=== PATIENT | male | born 1940 | race Caucasian/White ===

== ENCOUNTER 2017-01-06 10:04 | Day surgery (SDC) | payer OTHER, BC ==
[~2017-01-06 10:04] MED LIST: ADRENALINE CHL INJ IJ ONE; BETADINE OPHTH SOLN 5% EACHEYE ONE; DUOVISC IO ONE; TETRACAINE 0.5% OPHTH 1 DOSE AFFEYE ONE; VIGAMOX 0.5% OPHTH 1 DOSE AFFEYE ONE; XYLOCAINE-MPF 1% IJ ONE
[2017-01-06] MEDS ORDERED: VIGAMOX 0.5% OPHTH 1 DOSE AFFEYE ONE ×4 (10:06→14:13)
[2017-01-06] MEDS ORDERED: PROLENSA OPHTH 1 DOSE AFFEYE ONE (10:12)
[2017-01-06] MEDS ORDERED: ALPHAGAN-P OPHTH 1 DOSE AFFEYE ONE (10:13)
[2017-01-06] MEDS ORDERED: NS 500 ML IV 500 ML IV ONE (10:13)
[2017-01-06] MEDS ORDERED: CYCLOGYL 1% OPHTH 1 DOSE OP ONE ×4 (10:14→10:17)
[2017-01-06] MEDS ORDERED: MYDRIACIL OPHTH 1 DOSE AFFEYE ONE ×4 (10:14→10:17)
[2017-01-06] MEDS ORDERED: AK-DILATE 2.5% OPHTH 1 DOSE OP ONE ×4 (10:14→10:17)
[2017-01-06] MEDS ORDERED: TETRACAINE 0.5% OPHTH 1 DOSE AFFEYE ONE ×6 (13:28→13:59)
[2017-01-06] MEDS: VERSED ONE ×2 (13:40→13:41)
[2017-01-06] MEDS ORDERED: AK-DILATE 10% OPHTH 1 DOSE AFFEYE ONE (13:42)
[2017-01-06] MEDS ORDERED: BETADINE OPHTH SOLN 5% EACHEYE ONE (13:48)
[2017-01-06] MEDS ORDERED: ADRENALINE CHL INJ IJ ONE (13:59)
[2017-01-06] MEDS ORDERED: DUOVISC IO ONE (13:59)
[2017-01-06] MEDS ORDERED: BSS OPHTH (PLAIN) 500 ML with VANCOMYCIN HCL 500 MG VIAL 25 MG, ADRENALINE CHL INJ 1 MG IR ONE ×3 (13:59)
[2017-01-06] MEDS ORDERED: XYLOCAINE-MPF 1% IJ ONE (13:59)
[2017-01-06 14:31] VITALS: BP 167/84
== END 2017-01-06 14:37 | disposition home or self-care (01) ==
LOC: SURG1 10:04
PROVIDERS: ATTEND Ophthalmology
PROC: 08RK3JZ Replacement of Left Lens with Synthetic Substitute, Percutaneous Approach (ICD-10-PCS; principal; 2017-01-06 15:45)
PROC: 08DK3ZZ Extraction of Left Lens, Percutaneous Approach (ICD-10-PCS; principal; 2017-01-06 15:45)
DX: H25.12 Age-related nuclear cataract, left eye (principal); H25.012 Cortical age-related cataract, left eye; H52.222 Regular astigmatism, left eye
CPT/HCPCS: 99100; A4217; J0170; J2250; J3370

== ENCOUNTER 2017-02-10 07:23 | Day surgery (SDC) | payer OTHER, BC ==
[2017-02-10] MEDS ORDERED: NS 500 ML IV 500 ML IV ONE (07:40)
[2017-02-10] MEDS ORDERED: VERSED ONE (07:42)
[2017-02-10] MEDS ORDERED: TETRACAINE 0.5% OPHTH 1 DOSE AFFEYE ONE ×3 (07:54→09:32)
[2017-02-10] MEDS ORDERED: VERSED IVP ONE ×4 (07:54→09:40)
[2017-02-10] MEDS ORDERED: AK-DILATE 10% OPHTH 1 DOSE AFFEYE ONE ×2 (07:55→09:42)
[2017-02-10] MEDS ORDERED: VIGAMOX 0.5% OPHTH 1 DOSE AFFEYE ONE ×5 (08:01→10:21)
[2017-02-10] MEDS ORDERED: PROLENSA OPHTH 1 DOSE AFFEYE ONE (08:12)
[2017-02-10] MEDS ORDERED: ALPHAGAN-P OPHTH 1 DOSE AFFEYE ONE (08:13)
[2017-02-10] MEDS ORDERED: AK-DILATE 2.5% OPHTH 1 DOSE OP ONE ×3 (08:14→08:18)
[2017-02-10] MEDS ORDERED: CYCLOGYL 1% OPHTH 1 DOSE OP ONE ×3 (08:14→08:18)
[2017-02-10] MEDS ORDERED: MYDRIACIL OPHTH 1 DOSE AFFEYE ONE ×3 (08:14→08:18)
[2017-02-10] MEDS ORDERED: BETADINE OPHTH SOLN 5% EACHEYE ONE (09:46)
[2017-02-10] MEDS ORDERED: ADRENALINE CHL INJ IJ ONE ×2 (09:55→10:10)
[2017-02-10] MEDS ORDERED: DUOVISC IO ONE ×2 (09:55→10:10)
[2017-02-10] MEDS ORDERED: XYLOCAINE-MPF 1% IJ ONE ×2 (09:55→10:10)
[2017-02-10] MEDS ORDERED: BSS OPHTH (PLAIN) 500 ML with VANCOMYCIN HCL 500 MG VIAL 25 MG, ADRENALINE CHL INJ 1 MG IR ONE ×6 (09:58)
[2017-02-10 10:50] VITALS: BP 160/82
== END 2017-02-10 10:45 | disposition home or self-care (01) ==
LOC: SURG1 07:23
PROVIDERS: ATTEND Ophthalmology
PROC: 08DJ3ZZ Extraction of Right Lens, Percutaneous Approach (ICD-10-PCS; principal; 2017-02-10 09:00)
PROC: 08RJ3JZ Replacement of Right Lens with Synthetic Substitute, Percutaneous Approach (ICD-10-PCS; principal; 2017-02-10 09:00)
DX: H25.11 Age-related nuclear cataract, right eye (principal); H25.011 Cortical age-related cataract, right eye; H52.221 Regular astigmatism, right eye
CPT/HCPCS: 99100; A4217; J0170; J2250; J3370